=== PATIENT | male | born 1960 | race Caucasian/White ===

== ENCOUNTER 2021-07-12 07:57 | Outpatient (CLI) | payer OTHER ==
[~2021-07-12 07:57] MED LIST: NIASPAN500 MG PO
== END 2021-07-12 08:04 | disposition home or self-care (01) ==
LOC: RX STUDY 07:57
DX: Q43.8 Other specified congenital malformations of intestine (principal); N13.70 Vesicoureteral-reflux, unspecified

== ENCOUNTER 2021-08-09 12:33 | Outpatient (CLI) | payer OTHER | END 2021-08-09 15:54 | disposition home or self-care (01) | LOC: LAB 12:33 | PROVIDERS: ATTEND Radiology Diagnostic Radiology | DX: Z93.3 Colostomy status (principal) ==

== ENCOUNTER 2021-08-12 08:31 | Outpatient (CLI) | payer OTHER | END 2021-08-12 08:43 | disposition home or self-care (01) | LOC: TOM 08:31 | PROVIDERS: ATTEND Colon & Rectal Surgery | DX: R10.84 Generalized abdominal pain (principal); K57.20 Diverticulitis of large intestine with perforation and abscess without bleeding; Z93.2 Ileostomy status ==

== ENCOUNTER → 2021-09-06 09:43 | Outpatient (CLI) | payer OTHER | END | disposition home or self-care (01) | LOC: RAD 09:43 | PROVIDERS: ATTEND Colon & Rectal Surgery | DX: K57.20 Diverticulitis of large intestine with perforation and abscess without bleeding (principal); Z01.811 Encounter for preprocedural respiratory examination ==

== ENCOUNTER 2021-09-23 12:30 | Inpatient (IN) | payer OTHER ==
[~2021-09-23] VITALS: Ht 165.1 cm; Wt 99.8 kg
[2021-09-23] MEDS ORDERED: GLUMETZA500 MG PO (15:15)
[2021-09-23] MEDS ORDERED: QUINAPRIL HCL20 MG PO (15:15)
[2021-09-23] MEDS ORDERED: GLIMEPIRIDE2 M1 PO (15:16)
[2021-09-28] MEDS ORDERED: AMLODIPINE BESY10 MG (13:09)
[2021-09-28] MEDS ORDERED: ALBUTEROL2.5 MG/3 M (13:09)
[2021-09-28] MEDS ORDERED: VITACEL TABLET1 EACH (13:09)
== END 2021-10-08 19:09 | disposition home or self-care (01) | DRG 330 ==
LOC: O/R 09-28 07:06 → SURH 09-28 12:30 → O/R 09-30 16:25 → SURH 09-30 16:30
PROVIDERS: ADMIT Colon & Rectal Surgery; ATTEND Colon & Rectal Surgery
PROC: 0DTN0ZZ Resection of Sigmoid Colon, Open Approach (ICD-10-PCS; 2021-09-28)
PROC: 0WQF0ZZ Repair Abdominal Wall, Open Approach (ICD-10-PCS; 2021-09-28)
PROC: 0DTP0ZZ Resection of Rectum, Open Approach (ICD-10-PCS; principal; 2021-09-28 15:00)
PROC: 4A12X4Z Monitoring of Cardiac Electrical Activity, External Approach (ICD-10-PCS; 2021-09-29)
PROC: 4A033R1 Measurement of Arterial Saturation, Peripheral, Percutaneous Approach (ICD-10-PCS; 2021-09-29)
PROC: B24BZZZ Ultrasonography of Heart with Aorta (ICD-10-PCS; 2021-09-30)
PROC: 02HV33Z Insertion of Infusion Device into Superior Vena Cava, Percutaneous Approach (ICD-10-PCS; 2021-10-01)
PROC: 30243N1 Transfusion of Nonautologous Red Blood Cells into Central Vein, Percutaneous Approach (ICD-10-PCS; 2021-10-03)
DX: K57.30 Diverticulosis of large intestine without perforation or abscess without bleeding (principal); N17.8 Other acute kidney failure; D64.9 Anemia, unspecified; K94.00 Colostomy complication, unspecified; K43.9 Ventral hernia without obstruction or gangrene; I11.9 Hypertensive heart disease without heart failure; E11.9 Type 2 diabetes mellitus without complications; Z79.4 Long term (current) use of insulin

== ENCOUNTER 2021-10-17 14:25 | Inpatient (IN) | payer OTHER ==
[~2021-10-17] VITALS: Ht 165.1 cm; Wt 86.2 kg
[~2021-10-17 14:25] MED LIST changes: +ALBUTEROL2.5 MG/3 M; +AMLODIPINE BESY10 MG; +GLIMEPIRIDE2 M1 PO; +GLUMETZA500 MG PO; +QUINAPRIL HCL20 MG PO; +VITACEL TABLET1 EACH
[2021-10-21] MEDS ORDERED: VITACEL TABLET1 EACH (14:28)
[2021-10-21] MEDS ORDERED: ALBUTEROL2.5 MG/3 M (14:28)
== END 2021-10-21 20:22 | disposition home or self-care (01) | DRG 948 ==
LOC: ER 14:25 → SURH 19:51
PROVIDERS: ADMIT Colon & Rectal Surgery; ATTEND Colon & Rectal Surgery
PROC: BW21YZZ Computerized Tomography (CT Scan) of Abdomen and Pelvis using Other Contrast (ICD-10-PCS; 2021-10-17)
PROC: 02HV33Z Insertion of Infusion Device into Superior Vena Cava, Percutaneous Approach (ICD-10-PCS; 2021-10-19)
PROC: 0W9F30Z Drainage of Abdominal Wall with Drainage Device, Percutaneous Approach (ICD-10-PCS; principal; 2021-10-21)
DX: R18.8 Other ascites (principal); Z93.3 Colostomy status; Z20.822 Contact with and (suspected) exposure to COVID-19; E86.0 Dehydration; E87.8 Other disorders of electrolyte and fluid balance, not elsewhere classified